=== PATIENT | male | born 1935 | race Caucasian/White ===

== ENCOUNTER 2018-11-04 21:13 | Emergency (ER) | payer MEDICARE ==
[2018-11-04] MEDS ORDERED: Lidocaine 1% w/Epinephrine 1:100K 20 ML VIAL ONE (22:26)
--- NOTE | 2018-11-04 22:48 | CT ---
CT BRAIN NONCONTRAST: DATE: 11/04/2018 HISTORY: 83-year-old male status post acute head trauma from fall FINDINGS: There is no evidence of acute intra-axial or extra-axial hemorrhage. There is no midline shift or any other mass effect. There is no extra-axial fluid collection. There is no evidence of obstructive hydrocephalus. Calvarium is intact. There is diffuse brain parenchymal volume loss. IMPRESSION: 1) No acute intracranial findings. 2) involutional changes of the brain.
--- NOTE | 2018-11-04 22:51 | CT ---
CT CERVICAL SPINE NONCONTRAST: DATE: 11/04/2018 HISTORY: cervical trauma FINDINGS: There are no jumped or perched facets. There is no evidence of acute fracture. The vertebral body hei ghts are maintained. There is no prevertebral soft tissue swelling. There are degenerative disc changes and facet osteoarthrosis. Prominent grade 1 anterolisthesis of C7 on T1 appears to be due to bilateral facet DJD. IMPRESSION: 1) Cervical spondylosis. 2) no evidence of acute fracture 3) grade 1 spondylolisthesis at the cervical thoracic junction appears chronic.
[2018-11-04] MEDS ORDERED: Triple Antibiotic Oint 1 GM Packet ONE (23:32)
== END 2018-11-04 23:25 | disposition home or self-care (01) ==
LOC: ERS 21:13
DX: S01.81XA Laceration without foreign body of other part of head, initial encounter (principal); S30.1XXA Contusion of abdominal wall, initial encounter; E78.00 Pure hypercholesterolemia, unspecified; G20 Parkinson's disease; G23.1 Progressive supranuclear ophthalmoplegia [Steele-Richardson-Olszewski]; I10 Essential (primary) hypertension; W19.XXXA Unspecified fall, initial encounter
CPT/HCPCS: 12015; 70450; 72125; J2001

== ENCOUNTER 2018-11-15 10:04 | Outpatient (CLI) | payer MEDICARE | END 2018-11-15 10:05 | disposition home or self-care (01) | LOC: EKG 10:04 | PROVIDERS: ATTEND Nurse Practitioner Family | DX: R00.1 Bradycardia, unspecified (principal) | CPT/HCPCS: 93005; 93010 ==

== ENCOUNTER 2019-06-16 23:20 | Emergency (ER) | payer MEDICARE ==
[2019-06-17] MEDS ORDERED: Lidocaine 1% w/Epinephrine 1:100K 20 ML VIAL ONE (01:27)
--- NOTE | 2019-06-17 07:35 | CT ---
CT OF THE BRAIN WITHOUT CONTRAST: Date: 06/16/2019 COMPARISON: 11/04/2018. HISTORY: Fall while was moving him from wheelchair to bed. Laceration on the head with head trauma. [facility] ed speech is baseline for the patient. TECHNIQUE: Multiple contiguous axial images were obtained in a CT of the brain without contrast. FINDINGS: There are scattered hypodensities in the subcortical and periventricular white matter, likely seconda ry to small vessel ischemic disease. No large confluent infarction is seen. There is no evidence of h ydrocephalus, intracranial hemorrhage, or extra-axial fluid collection. The calvarium and overlying soft tissues are unremarkable. The visualized paranasal sinuses and masto id air cells are well aerated. IMPRESSION: No evidence of acute intracranial abnormality. POS: ANNA[facility]
== END 2019-06-17 02:08 | disposition home or self-care (01) ==
LOC: ERS 23:20
DX: S01.01XA Laceration without foreign body of scalp, initial encounter (principal); W05.0XXA Fall from non-moving wheelchair, initial encounter
CPT/HCPCS: 12002; 70450